=== PATIENT | female | born 1965 | race Caucasian/White ===

== ENCOUNTER → 2016-10-07 | Outpatient (CLI) | payer BC | LOC: MC.RAD 07:00 | DX: Z12.31 Encounter for screening mammogram for malignant neoplasm of breast (principal) ==

== ENCOUNTER → 2017-12-17 | Outpatient (CLI) | payer BC | LOC: MC.RAD 13:18 | DX: D24.1 Benign neoplasm of right breast (principal) ==

== ENCOUNTER → 2018-07-05 | Outpatient (CLI) | payer BC | LOC: COL.RAD 11:00 | DX: K11.1 Hypertrophy of salivary gland (principal) | CPT/HCPCS: Q9967 ==

== ENCOUNTER → 2019-03-09 | Outpatient (CLI) | payer BC | LOC: MC.RAD 14:43 | DX: Z12.31 Encounter for screening mammogram for malignant neoplasm of breast (principal) ==

== ENCOUNTER → 2021-04-12 | Outpatient (CLI) | payer BC | LOC: MC.RAD 07:14 | DX: Z12.31 Encounter for screening mammogram for malignant neoplasm of breast (principal) ==